=== PATIENT | male | born 1995 | race Hispanic/Latino ===

== ENCOUNTER 2017-05-07 18:42 | Emergency (ER) | payer OTHER ==
[2017-05-07 18:55] VITALS: BP 145/90; PULSE 88; RESP 16; TEMP 97.8; O2SAT 100
--- NOTE | 2017-05-07 19:51 | ED PDOC ---
Arrival/HPI - General Chief Complaint: GI Problem Time Seen by Provider: 05/07/17 18:48 - History of Present Illness Narrative History of Present Illness (Text): 05/07/17 19:59 21yo male with 2 days duration of watery non-bloody diarrhea. States this started after he returned from [place]. denies nausea or vomiting. denies abd. pain. States he is able to tolerate PO without difficulty. No f/c, no other complaints. Past Medical History - Provider Review Nursing Documentation Reviewed: Yes - Travel History If Yes, travel location?: [place] - Psychiatric Hx Substance Use: No - Surgical History Other/Comment: hypospadias x 2 Family/Social History Family/Social History: Unknown Family HX Smoking Status: Never Smoked Hx Alcohol Use: Yes Frequency of alcohol use: Socially Hx Substance Use: No Allergies/Home Meds Allergies/Adverse Reactions: Allergies No Known Allergies Allergy (Verified 05/07/17 18:53) Physical Exam - Physical Exam Narrative Physical Exam (Text): 05/07/17 20:05 - Review of Systems Constitutional: Normal. absent: Fatigue, Weight Change, Fevers Eyes: Normal ENT: denies sore throat, denies tristhmus Respiratory: Normal. absent: SOB, Cough, Sputum Cardiovascular: absent: Chest Pain, Palpitations, Syncope Gastrointestinal: Diarrhea. absent: Abdominal Pain, Nausea, Vomiting Genitourinary: Normal. absent: Dysuria, Frequency, Hematuria Musculoskeletal: Normal. absent: Arthralgias, Back Pain, Neck Pain Skin: no rashes, no erythema Neurological: absent: Focal Weakness Endocrine: Normal Hemo/Lymphatic: Normal Psychiatric: No suicidal or homicidal ideations Physical exam Patient appears age appropriate in no distress, speaking full sentences without difficulty - Systems Exam Head: Present: Atraumatic, Normocephalic Pupils: Present: PERRL Extroacular Muscles: Present: EOMI Conjunctiva: Present: Normal Mouth: Present: Moist Mucous Membranes Neck: Present: Normal Range of Motion. No: MIDLINE TENDERNESS, Paraspinal Tenderness Respiratory/Chest: Present: Clear to Auscultation, Good Air Exchange. No: Respiratory Distress, Accessory Muscle Use, Tachypneic Cardiovascular: Present: Regular Rate and Rhythm, Normal S1, S2, Peripheal Pulses Present. No: Murmurs Abdomen: Present: Normal Bowel Sounds. No: Tenderness, Distention, Peritoneal Signs, Rebound, Guarding Back: Present: Normal Inspection. No: Midline Tenderness, Paraspinal Tenderness Upper Extremity: Present: Normal Inspection. No: Cyanosis, Edema Lower Extremity: Present: Normal Inspection. No: Edema Neurological: Present: GCS=15, Speech Normal, cranial nerves II through XII fully intact with no cerebellar abnormality, neurosensory fully intact. No focal neurological deficits. Skin: Present: Warm, Dry, Normal Color. No: Rashes Lymphatic: Present: OX3, NI, NC Psychiatric: Present: Alert, Oriented x 3, Normal Insight, Normal Concentration Vital Signs Reviewed: Yes Vital Signs Temp Pulse Resp BP Pulse Ox 05/07/17 18:49 97.8 F 88 16 145/90 100 Temperature: Afebrile Blood Pressure: Normal Pulse: Regular Respiratory Rate: Normal Appearance: Positive for: Well-Appearing Pain Distress: None Mental Status: Positive for: Alert and Oriented X 3 Medical Decision Making ED Course and Treatment: 05/07/17 20:06 21yo male with diarrhea after he came back from [place] tolerating PO without difficulty abd soft/nt/nd vitals stable, afebrile, appears well hydrated and in no distress dw Dr. Harrington, recommends cipro/flagyl and dc home dw patient and mother adverse effects of cipro and flagyl and risks when taking these antibiotics. pt states he feels comfortable being dc'd home with outpatient f/u Pt states he understands to return to the ER right away for new or worsening symptoms or for inability to f/u with PMD or specialist as instructed. Patient states that he fully agrees with and understands discharge instructions. States that he agrees with the plan and disposition. Verbalized and repeated discharge instructions and plan. I have given the patient opportunity to ask any additional questions. Disposition/Present on Arrival - Present on Arrival Any Indicators Present on Arrival: No History of DVT/PE: No History of Uncontrolled Diabetes: No Urinary Catheter: No History of Decub. Ulcer: No History Surgical Site Infection Following: None - Disposition Have Diagnosis and Disposition been Completed?: Yes Diagnosis: Diarrhea Disposition: HOME/ ROUTINE Disposition Time: 19:46 Patient Plan: Discharge Patient Problems: Current Active Problems Problem Status Onset Diarrhea Acute Condition: GOOD Discharge Instructions (ExitCare): Acute Diarrhea (ED), Traveler's Diarrhea (ED ) Additional Instructions: PLEASE RETURN TO THE EMERGENCY DEPARTMENT FOR NEW OR WORSENING SYMPTOMS. RETURN RIGHT AWAY IF YOU CANNOT FOLLOW UP WITH YOUR PRIMARY CARE DOCTOR, CLINIC, OR SPECIALIST IN 1-2 DAYS. Prescriptions: Ciprofloxacin [Cipro] 500 mg PO Q12 #10 tab Metronidazole [Flagyl] 500 mg PO TID #15 tab Referrals: Bridger Harrington MD [Primary Care Provider] - Follow up with primary Forms: WORK NOTE
== END 2017-05-07 20:15 | disposition home or self-care (01) ==
LOC: ED 18:42
DX: R19.7 Diarrhea, unspecified (principal)